=== PATIENT | female | born 1950 | race Hispanic/Latino ===

== ENCOUNTER → 2019-07-28 | Day surgery (SDC) | payer MEDICARE, OTHER ==
[2019-07-24 12:33] LABS: BASOPHILS % 0.3 % (0.0-1.0); EOSINOPHILS # (AUTO) 0.1 (0.0-0.4); EOSINOPHILS % 1.9 % (0.0-6.0); HEMATOCRIT 31.5 % (34.2-44.1); HEMOGLOBIN 10.1 g/dL (12.0-16.0); LYMPHOCYTES # (AUTO) 2.2 (1.0-3.2); LYMPHOCYTES % 37.5 % (18.0-39.1); MEAN CORPUSCULAR HEMOGLOBIN 30.8 pg (28-32); MEAN CORPUSCULAR HGB CONC 32.1 g/dL (31-35); MONOCYTES # (AUTO) 0.4 (0.2-0.8); MONOCYTES % 6.6 % (4.4-11.3); NEUTROPHILS # (AUTO) 3.1 (2.1-6.9); NEUTROPHILS % 53.5 % (38.7-80.0); PLATELET COUNT 167 x10e3/uL (140-360); RED BLOOD COUNT 3.28 x10e6/uL (3.6-5.1); RED CELL DISTRIBUTION WIDTH 14.5 % (11.7-14.4)
--- NOTE | 2019-07-24 12:35 | Diagnostic Imaging Report ---
EXAMINATION: CHEST 2 VIEWS INDICATION: Pre-operative COMPARISON: None FINDINGS: LINES/TUBES:None LUNGS:The lungs are well-inflated. No focal consolidation or pulmonary edema. PLEURA:No pleural effusion or pneumothorax. MEDIASTINUM:The cardiomediastinal silhouette appears normal in size and shape. Atherosclerotic calcifications of the thoracic aorta. BONES/SOFT TISSUES:No acute osseous injury. Multilevel degenerative changes of the visualized spine. ABDOMEN:No free air under the diaphragm. IMPRESSION: No focal pneumonia or pulmonary edema. Signed by: Dinora Pulido MD on 07/24/2019 12:32 PM
[2019-07-24 13:00] LABS: ANION GAP 13.1 mmol/L (8-16); CALCIUM 9.4 mg/dL (8.4-10.2); CREATININE, SERUM 0.96 mg/dL (0.57-1.11); POTASSIUM 4.1 mmol/L (3.5-5.1)
[~2019-07-28] MED LIST: ASPIR 8181 MG PO; BUPIVACAINE 0.25% 30ML SDV INJ ONE; BUPIVACAINE 0.5%/EPI 30 ML SDV INJ ONE; CALCIUM 600 +1 EAC2 PO; CEFAZOLIN SOD 1 GM/NS 50ML 50 ML IV ONE; DEXAMETHASONE SOD PHOS INJ 4 MG/ML VIAL ONE; EPINEPHRINE HCL 1:1000 1ML 1 MG/ML AMP ONE; FENTANYL CITRATE/PF 100MCG/2 ML INJ ONE; GLIMEPIRIDE2 MG PO; HYDROCHLOROTHIA25 MG PO; KETOROLAC TROMETHAMINE 30 MG/ML VIAL ONE; LIDOCAINE HCL 2% LOCAL INJ 5 ML SDV VIAL INJ ONE; LOSARTAN POTAS100 MG PO; METFORMIN HCL500 M1 PO; METOPROLOL SUCC50 MG PO; MIDAZOLAM HCL 2 MG/2 ML VIAL ONE; MUPIROCIN 2% OINT 22 GM TUBE ONE; NEXIUM20 MG PO; ONDANSETRON HCL INJ 2MG/ML 2ML 2 MG/ML VIAL ONE; PIOGLITAZONE HC45 MG PO; PROPOFOL IV EMULSION 10 MG/ML 20 ML VIAL ONE; SERTRALINE HCL50 MG PO; SEVOFLURANE INHAL SOLN 250 ML PEN BTL ONE; SIMVASTATIN20 MG PO; calcium PO
--- OUTSIDE RECORDS SUMMARY | 2019-07-28 05:55 | XMS REPORT | Continuity of Care Document ---
Author Author [facility] Organization [facility] Address Unknown Phone Unavailable Care Team Providers Care Truss Maker Name Role Phone MD Pinky, Nakia SAEED Unavailable Insurance Providers Payer name Policy type / Coverage type Policy ID Covered alliance party ID Policy [place] [employer] [place]PL [place] [employer] [place] [employer] [place] [employer] [place] [employer] [place] [employer] [place] [employer] [place] [employer] [place] [employer] [place] [employer] Encounters Encounter Performer Location Date Lab Report Nakia Vance MD [facility] Jun 01, 2015 Problems Problem Effective Dates Problem Status DIABETES MELLITUS, TYPE II, UNCONTROLLED Nov 04, 2014 Active HYPERTENSION Nov 04, 2014 Active HYPERLIPIDEMIA Nov 04, 2014 Active DEPRESSION/ANXIETY Nov 04, 2014 Active BODY MASS INDEX 32.0-32.9, ADULT Nov 04, 2014 Active PREVENTIVE HEALTH CARE Nov 04, 2014 Active SCREENING FOR COLON CANCER Nov 04, 2014 Active OTHER SCREENING MAMMOGRAM Nov 04, 2014 Active SCREENING FOR GLAUCOMA Nov 04, 2014 Active MENOPAUSE Nov 04, 2014 Active ROUTINE GYNECOLOGICAL EXAMINATION Nov 04, 2014 Active NEED PROPHYLACTIC VACCINATION&INOCULATION FLU Nov 04, 2014 Active ANEMIA, CHRONIC Dec 07, 2014 Active GASTRITIS March 08, 2015 Active HELICOBACTER PYLORI INFECTION March 08, 2015 Active Procedures Date Description Comments Nov 04, 2014 smoking status Never smoker Nov 04, 2014 diabetic foot check yes Dec 07, 2014 smoking status Never smoker Jan 07, 2015 mammogram Completed Feb 03, 2015 colonoscopy Complete March 08, 2015 smoking status Never smoker Medications Medication Instructions Start Date Status SIMVASTATIN 10 MG TABS take one tablet by mouth daily Nov 04, 2014 Active PIOGLITAZONE HCL 30 MG TABS take one tablet by mouth daily Nov 04, 2014 Active LOSARTAN POTASSIUM 50 MG TABS take one tablet by mouth daily Nov 04, 2014 Active TOPROL XL 200 MG [id number] take one tablet by mouth daily Nov 04, 2014 Active SERTRALINE HCL 25 MG TABS take one tablet by mouth daily Nov 04, 2014 Active HYDROCHLOROTHIAZIDE 25 MG TABS take one tablet by mouth daily Nov 04, 2014 Active OMEPRAZOLE 20 MG CPDR take one capsule by mouth daily Nov 04, 2014 Active ASPIRIN ADULT LOW STRENGTH 81 MG TBEC take one tablet by mouth daily Nov 04, 2014 Active FERROUS SULFATE 325 (65 FE) MG TABS Take one tablet by mouth two times a day Dec 07, 2014 Active PYLERA CAPS use as directed March 08, 2015 Active VITAMIN B-12 INJECTIONS use as directed once a month March 08, 2015 Active GLIPIZIDE 5 MG TABS Take one tablet by mouth two times a day Nov 04, 2014 Active METFORMIN HCL 500 MG TABS Take one tablet by mouth two times a day March 08, 2015 Active Immunizations Vaccine Date Status influenza immunization (Flu Vax) has been administered Nov 04, 2014 completed Vital Signs Date Description Test Result Nov 04, 2014 weight E&M - 3141-9 WEIGHT 194 lb Nov 04, 2014 height E&M - 8302-2 HEIGHT 65 in Nov 04, 2014 temperature E&M TEMPERATURE 99.3 deg f Nov 04, 2014 respiratory rate E&M - 9279-1 RESP RATE 16 /min Nov 04, 2014 pulse rate E&M - 8867-4 PULSE RATE 66 /min Nov 04, 2014 blood pressure, systolic - 8480-6 BP SYSTOLIC 121 mm Hg Nov 04, 2014 blood pressure, diastolic - 8462-4 BP DIASTOLIC 43 mm Hg Dec 07, 2014 height E&M - 8302-2 HEIGHT 65 in Dec 07, 2014 weight E&M - 3141-9 WEIGHT 189.25 lb Dec 07, 2014 temperature E&M TEMPERATURE 99.5 deg f Dec 07, 2014 respiratory rate E&M - 9279-1 RESP RATE 14 /min Dec 07, 2014 pulse rate E&M - 8867-4 PULSE RATE 60 /min Dec 07, 2014 blood pressure, systolic - 8480-6 BP SYSTOLIC 132 mm Hg Dec 07, 2014 blood pressure, diastolic - 8462-4 BP DIASTOLIC 61 mm Hg March 08, 2015 respiratory rate E&M - 9279-1 RESP RATE 16 /min March 08, 2015 temperature E&M TEMPERATURE 97.8 deg f March 08, 2015 weight E&M - 3141-9 WEIGHT 182.13 lb March 08, 2015 height E&M - 8302-2 HEIGHT 65 in March 08, 2015 blood pressure, systolic - 8480-6 BP SYSTOLIC 142 mm Hg March 08, 2015 blood pressure, diastolic - 8462-4 BP DIASTOLIC 63 mm Hg March 08, 2015 pulse rate E&M - 8867-4 PULSE RATE 66 /min March 08, 2015 blood pressure, systolic, second observation BP SYS #2 142 mm Hg March 08, 2015 blood pressure, diastolic, second observation BP FUNMI #2 80 mm Hg Results Date Description Test Name Value Reference Interpretation Status Nov 30, 2014 hemoglobin, blood HGB 9.3 g/dL 12.0-16.0 Low Nov 30, 2014 hematocrit, blood HCT 29.2 % 36.0-48.0 Low Nov 30, 2014 platelet count PLATELETS 154 K/CMM /mm3 133-450 May 31, 2015 hemoglobin, blood HGB 13.1 g/dL 12.0-16.0 May 31, 2015 hematocrit, blood HCT 40.2 % 36.0-48.0 May 31, 2015 platelet count PLATELETS 143 K/CMM /mm3 133-450 March 03, 2015 hemoglobin A1C, blood, as % of total hemoglobin HGBA1C 10.8 % <=5.6 High March 03, 2015 sodium, serum SODIUM 139 MEQ/L mmol/L 135-145 March 03, 2015 potassium, serum POTASSIUM 4.8 MEQ/L mmol/L 3.5-5.1 March 03, 2015 creatinine, serum CREATININE 0.9 mg/dL 0.5-1.4 March 03, 2015 urea nitrogen, blood BUN 13 mg/dL 7-March 03, 2015 urea nitrogen/creatinine ratio, serum BUN/CREAT 14 null 6-25 March 03, 2015 albumin, serum ALBUMIN 3.9 g/dL 3.5-5.0 March 03, 2015 calcium, serum CALCIUM 9.1 mg/dL 8.5-10.5 March 03, 2015 alanine aminotransferase (SGPT), serum SGPT (ALT) 42 U/L 0-65 March 03, 2015 aspartate aminotransferase (SGOT), serum SGOT (AST) 47 U/L 0-37 High March 03, 2015 alkaline phosphatase, serum ALK PHOS 130 U/L 39-136 Nov 30, 2014 hemoglobin A1C, blood, as % of total hemoglobin HGBA1C 7.5 % <=5.6 High Nov 30, 2014 thyroid stimulating hormone, serum TSH 2.330 uIU/mL 0.360-3.740 Nov 30, 2014 cholesterol, serum CHOLESTEROL 152 mg/dl <=199 Nov 30, 2014 triglyceride, serum, fasting TRIGLYCERIDE 106 mg/dl <=149 Nov 30, 2014 HDL cholesterol, serum HDL 57 mg/dl >=61 Low Nov 30, 2014 LDL cholesterol, serum LDL 74 mg/dl <=99 Nov 30, 2014 sodium, serum SODIUM 139 MEQ/L mmol/L 135-145 Nov 30, 2014 potassium, serum POTASSIUM 4.3 MEQ/L mmol/L 3.5-5.1 Nov 30, 2014 creatinine, serum CREATININE 0.8 mg/dL 0.5-1.4 Nov 30, 2014 urea nitrogen, blood BUN 14 mg/dL 7-22 Nov 30, 2014 urea nitrogen/creatinine ratio, serum BUN/CREAT 18 null 6-25 Nov 30, 2014 albumin, serum ALBUMIN 4.0 g/dL 3.5-5.0 Nov 30, 2014 calcium, serum CALCIUM 9.2 mg/dL 8.5-10.5 Nov 30, 2014 alanine aminotransferase (SGPT), serum SGPT (ALT) 24 U/L 0-65 Nov 30, 2014 aspartate aminotransferase (SGOT), serum SGOT (AST) 24 U/L 0-37 Nov 30, 2014 alkaline phosphatase, serum ALK PHOS 130 U/L 39-136 Nov 30, 2014 ferritin, serum FERRITIN 6 ng/mL 5-204 Nov 30, 2014 iron, serum IRON 30 ug/dL 30-160 Nov 30, 2014 iron binding capacity, total TIBC 342 ug/dL 228-428 Dec 02, 2014 occult blood, stool (E&M) HEMOCCULT Negative null Negative Dec 03, 2014 occult blood, stool (E&M) HEMOCCULT Negative null Negative Dec 04, 2014 occult blood, stool (E&M) HEMOCCULT Negative null Negative March 03, 2015 hemoglobin A1C, blood, as % of total hemoglobin HGBA1C 10.8 % <=5.6 High March 03, 2015 sodium, serum SODIUM 139 MEQ/L mmol/L 135-145 March 03, 2015 potassium, serum POTASSIUM 4.8 MEQ/L mmol/L 3.5-5.1 March 03, 2015 creatinine, serum CREATININE 0.9 mg/dL 0.5-1.4 March 03, 2015 urea nitrogen, blood BUN 13 mg/dL 7-22 March 03, 2015 urea nitrogen/creatinine ratio, serum BUN/CREAT 14 null 6-25 March 03, 2015 albumin, serum ALBUMIN 3.9 g/dL 3.5-5.0 March 03, 2015 calcium, serum CALCIUM 9.1 mg/dL 8.5-10.5 March 03, 2015 alanine aminotransferase (SGPT), serum SGPT (ALT) 42 U/L 0-65 March 03, 2015 aspartate aminotransferase (SGOT), serum SGOT (AST) 47 U/L 0-37 High March 03, 2015 alkaline phosphatase, serum ALK PHOS 130 U/L 39-136 May 31, 2015 hemoglobin A1C, blood, as % of total hemoglobin HGBA1C 7.8 % <=5.6 High May 31, 2015 cholesterol, serum CHOLESTEROL 194 mg/dl <=199 May 31, 2015 triglyceride, serum, fasting TRIGLYCERIDE 216 mg/dl <=149 High May 31, 2015 HDL cholesterol, serum HDL 54 mg/dl >=61 Low May 31, 2015 LDL cholesterol, serum LDL 97 mg/dl <=99 May 31, 2015 sodium, serum SODIUM 140 MEQ/L mmol/L 135-145 May 31, 2015 potassium, serum POTASSIUM 4.8 MEQ/L mmol/L 3.5-5.1 May 31, 2015 creatinine, serum CREATININE 0.9 mg/dL 0.5-1.4 May 31, 2015 urea nitrogen, blood BUN 23 mg/dL 7-22 High May 31, 2015 urea nitrogen/creatinine ratio, serum BUN/CREAT 26 null 6-25 High May 31, 2015 albumin, serum ALBUMIN 3.8 g/dL 3.5-5.0 May 31, 2015 calcium, serum CALCIUM 9.1 mg/dL 8.5-10.5 May 31, 2015 alanine aminotransferase (SGPT), serum SGPT (ALT) 44 U/L 0-65 May 31, 2015 aspartate aminotransferase (SGOT), serum SGOT (AST) 54 U/L 0-37 High May 31, 2015 alkaline phosphatase, serum ALK PHOS 122 U/L 39-136
--- OUTSIDE RECORDS SUMMARY | 2019-07-28 05:55 | XMS REPORT | Continuity of Care Document ---
Author Author [email or web address] Address Unknown Phone Unavailable Care Team Providers Care Director Food Safety Name Role Phone Logan Unavailable Unavailable Problems Problem Status Onset Date Classification Date Reported Comments Source GASTRITIS Active 03/08/2015 Condition 06/07/2015 [facility] HELICOBACTER PYLORI INFECTION Active 03/08/2015 Condition 06/07/2015 [facility] ANEMIA, CHRONIC Active 12/07/2014 Condition 06/07/2015 [facility] DIABETES MELLITUS, TYPE II, UNCONTROLLED Active 11/04/2014 Condition 06/07/2015 [facility] HYPERTENSION Active 11/04/2014 Condition 06/07/2015 [facility] HYPERLIPIDEMIA Active 11/04/2014 Condition 06/07/2015 [facility] DEPRESSION/ANXIETY Active 11/04/2014 Condition 06/07/2015 [facility] BODY MASS INDEX 32.0-32.9, ADULT Active 11/04/2014 Condition 06/07/2015 [facility] PREVENTIVE HEALTH CARE Active 11/04/2014 Condition 06/07/2015 [facility] SCREENING FOR COLON CANCER Active 11/04/2014 Condition 06/07/2015 [facility] OTHER SCREENING MAMMOGRAM Active 11/04/2014 Condition 06/07/2015 [facility] SCREENING FOR GLAUCOMA Active 11/04/2014 Condition 06/07/2015 [facility] MENOPAUSE Active 11/04/2014 Condition 06/07/2015 [facility] ROUTINE GYNECOLOGICAL EXAMINATION Active 11/04/2014 Condition 06/07/2015 [facility] NEED PROPHYLACTIC VACCINATION&INOCULATION FLU Active 11/04/2014 Condition 06/07/2015 [facility] Joint pain Active Diagnosis 07/23/2019 Rock Castillo ALEXANDRO positive Active Problem 07/23/2019 Rock Castillo Rotator cuff arthropathy Active Problem 07/23/2019 Rock Castillo Shoulder pain, left Active Diagnosis 07/23/2019 Rock Castillo Osteopenia after menopause Active Problem 07/23/2019 Rock Castillo Medications Medication Details Route Status Patient Instructions Ordering Provider Order Date Source PYLERA CAPS use as directed Active 03/08/2015 [facility] VITAMIN B-12 INJECTIONS use as directed once a month Active 03/08/2015 [facility] METFORMIN HCL 500 MG TABS Take one tablet by mouth two times a day Active 03/08/2015 [facility] METFORMIN HCL 500 MG TABS Take one tablet by mouth two times a day Active 03/08/2015 [facility] FERROUS SULFATE 325 (65 FE) MG TABS Take one tablet by mouth two times a day Active 12/07/2014 [facility] SIMVASTATIN 10 MG TABS take one tablet by mouth daily Active 11/04/2014 [facility] PIOGLITAZONE HCL 30 MG TABS take one tablet by mouth daily Active 11/04/2014 [facility] LOSARTAN POTASSIUM 50 MG TABS take one tablet by mouth daily Active 11/04/2014 [facility] TOPROL XL 200 MG [id number] take one tablet by mouth daily Active 11/04/2014 [facility] SERTRALINE HCL 25 MG TABS take one tablet by mouth daily Active 11/04/2014 [facility] HYDROCHLOROTHIAZIDE 25 MG TABS take one tablet by mouth daily Active 11/04/2014 [facility] OMEPRAZOLE 20 MG CPDR take one capsule by mouth daily Active 11/04/2014 [facility] METFORMIN HCL ER 500 MG [id number] take two tablets by mouth twice a day Active 11/04/2014 [facility] ASPIRIN ADULT LOW STRENGTH 81 MG TBEC take one tablet by mouth daily Active 11/04/2014 [facility] PIOGLITAZONE HCL 30 MG TABS take one tablet by mouth daily Active 11/04/2014 [facility] LOSARTAN POTASSIUM 50 MG TABS take one tablet by mouth daily Active 11/04/2014 [facility] TOPROL XL 200 MG [id number] take one tablet by mouth daily Active 11/04/2014 [facility] HYDROCHLOROTHIAZIDE 25 MG TABS take one tablet by mouth daily Active 11/04/2014 [facility] OMEPRAZOLE 20 MG CPDR take one capsule by mouth daily Active 11/04/2014 [facility] GLIPIZIDE 5 MG TABS Take one tablet by mouth two times a day Active 11/04/2014 [facility] PIOGLITAZONE HCL 30 MG TABS take one tablet by mouth daily Active 11/04/2014 [facility] OMEPRAZOLE 20 MG CPDR take one capsule by mouth daily Active 11/04/2014 [facility] GLIPIZIDE 5 MG TABS Take one tablet by mouth two times a day Active 11/04/2014 [facility] Metoprolol Succinate 1 tablet Orally Active 50 MG Orally Once a day Tim Rock Castillo Glimepiride 1 tablet with breakfast or the first main meal of the day Orally Active 2 MG Orally Once a day Timyolanda Castillo Calcium + D as directed Orally Active 500-1000-40 MG-UNT-MCG Orally Tim Rock Castillo Metformin HCl 1 tablet with a meal Orally Active 500 MG Orally Once a day Tim Rock Castillo Losartan Potassium 1 tablet Orally Active 100 MG Orally Once a day Tim Rock Castillo Sertraline HCl 1 tablet Orally Active 25 MG Orally Once a day Tim Rock Castillo Hydrochlorothiazide 1 tablet in the morning Orally Active 25 MG Orally Once a day Tim Rock Castillo Simvastatin 1 tablet in the evening Orally Active 10 MG Orally Once a day Tim Rock Castillo Pioglitazone HCl 1 tablet Orally Active 30 MG Orally Once a day Tim Rock Castillo Esomeprazole Magnesium 1 tablet Orally Active 20 MG Orally Once a day Tim Rock Castillo Allergies, Adverse Reactions, Alerts Substance Category Reaction Severity Reaction type Status Date Reported Comments Source N.K.D.A. Adverse Reaction Info Not Available Adverse Reaction 02/10/2019 Rock Castillo Immunizations Immunization Date Given Site Status Last Updated Comments Source influenza immunization (Flu Vax) has been administered 11/04/2014 completed [facility] Results Order Name Results Value Reference Range Date Interpretation Comments Source Chemistry HGBA1C 7.8 - 5.6 05/31/2015 [facility] Chemistry CHOLESTEROL 194 - 199 05/31/2015 [facility] Chemistry TRIGLYCERIDE 216 - 149 05/31/2015 [facility] Chemistry HDL 54 >=61 05/31/2015 [facility] Chemistry LDL 97 - 99 05/31/2015 [facility] Chemistry SODIUM 140 MEQ/L 135 - 145 05/31/2015 [facility] Chemistry POTASSIUM 4.8 MEQ/L 3.5 - 5.1 05/31/2015 [facility] Chemistry CREATININE 0.9 0.5 - 1.4 05/31/2015 [facility] Chemistry BUN 23 7 - 22 05/31/2015 [facility] Chemistry BUN/CREAT 26 6 - 25 05/31/2015 [facility] Chemistry ALBUMIN 3.8 3.5 - 5.0 05/31/2015 [facility] Chemistry CALCIUM 9.1 8.5 - 10.5 05/31/2015 [facility] Chemistry SGPT (ALT) 44 0 - 65 05/31/2015 [facility] Chemistry SGOT (AST) 54 0 - 37 05/31/2015 [facility] Chemistry ALK PHOS 122 39 - 136 05/31/2015 [facility] Hematology HGB 13.1 12.0 - 16.0 05/31/2015 [facility] Hematology HCT 40.2 36.0 - 48.0 05/31/2015 [facility] Hematology PLATELETS 143 K/CMM 133 - 450 05/31/2015 [facility] Chemistry HGBA1C 10.8 - 5.6 03/03/2015 [facility] Chemistry SODIUM 139 MEQ/L 135 - 145 03/03/2015 [facility] Chemistry POTASSIUM 4.8 MEQ/L 3.5 - 5.1 03/03/2015 [facility] Chemistry CREATININE 0.9 0.5 - 1.4 03/03/2015 [facility] Chemistry BUN 13 7 - 22 03/03/2015 [facility] Chemistry BUN/CREAT 14 6 - 25 03/03/2015 [facility] Chemistry ALBUMIN 3.9 3.5 - 5.0 03/03/2015 [facility] Chemistry CALCIUM 9.1 8.5 - 10.5 03/03/2015 [facility] Chemistry SGPT (ALT) 42 0 - 65 03/03/2015 [facility] Chemistry SGOT (AST) 47 0 - 37 03/03/2015 [facility] Chemistry ALK PHOS 130 39 - 136 03/03/2015 [facility] Chemistry HGBA1C 10.8 - 5.6 03/03/2015 [facility] Chemistry SODIUM 139 MEQ/L 135 - 145 03/03/2015 [facility] Chemistry POTASSIUM 4.8 MEQ/L 3.5 - 5.1 03/03/2015 [facility] Chemistry CREATININE 0.9 0.5 - 1.4 03/03/2015 [facility] Chemistry BUN 13 7 - 22 03/03/2015 [facility] Chemistry BUN/CREAT 14 6 - 25 03/03/2015 [facility] Chemistry ALBUMIN 3.9 3.5 - 5.0 03/03/2015 [facility] Chemistry CALCIUM 9.1 8.5 - 10.5 03/03/2015 [facility] Chemistry SGPT (ALT) 42 0 - 65 03/03/2015 [facility] Chemistry SGOT (AST) 47 0 - 37 03/03/2015 [facility] Chemistry ALK PHOS 130 39 - 136 03/03/2015 [facility] Chemistry HGBA1C 10.8 - 5.6 03/03/2015 [facility] Chemistry SODIUM 139 MEQ/L 135 - 145 03/03/2015 [facility] Chemistry POTASSIUM 4.8 MEQ/L 3.5 - 5.1 03/03/2015 [facility] Chemistry HGBA1C 10.8 - 5.6 03/03/2015 [facility] Chemistry SODIUM 139 MEQ/L 135 - 145 03/03/2015 [facility] Chemistry POTASSIUM 4.8 MEQ/L 3.5 - 5.1 03/03/2015 [facility] Chemistry HEMOCCULT Negative 12/04/2014 [facility] Chemistry HEMOCCULT Negative 12/04/2014 [facility] Chemistry HEMOCCULT Negative 12/04/2014 [facility] Chemistry HEMOCCULT Negative 12/03/2014 [facility] Chemistry HEMOCCULT Negative 12/03/2014 [facility] Chemistry HEMOCCULT Negative 12/03/2014 [facility] Chemistry HEMOCCULT Negative 12/02/2014 [facility] Chemistry HEMOCCULT Negative 12/02/2014 [facility] Chemistry HEMOCCULT Negative 12/02/2014 [facility] Chemistry HGBA1C 7.5 - 5.6 11/30/2014 [facility] Chemistry TSH 2.330 0.360 - 3.740 11/30/2014 [facility] Chemistry CHOLESTEROL 152 - 199 11/30/2014 [facility] Chemistry TRIGLYCERIDE 106 - 149 11/30/2014 [facility] Chemistry HDL 57 >=61 11/30/2014 [facility] Chemistry LDL 74 - 99 11/30/2014 [facility] Chemistry SODIUM 139 MEQ/L 135 - 145 11/30/2014 [facility] Chemistry POTASSIUM 4.3 MEQ/L 3.5 - 5.1 11/30/2014 [facility] Chemistry CREATININE 0.8 0.5 - 1.4 11/30/2014 [facility] Chemistry BUN 14 7 - 22 11/30/2014 [facility] Chemistry BUN/CREAT 18 6 - 25 11/30/2014 [facility] Chemistry ALBUMIN 4.0 3.5 - 5.0 11/30/2014 [facility] Chemistry CALCIUM 9.2 8.5 - 10.5 11/30/2014 [facility] Chemistry SGPT (ALT) 24 0 - 65 11/30/2014 [facility] Chemistry SGOT (AST) 24 0 - 37 11/30/2014 [facility] Chemistry ALK PHOS 130 39 - 136 11/30/2014 [facility] Chemistry FERRITIN 6 5 - 204 11/30/2014 [facility] Chemistry IRON 30 30 - 160 11/30/2014 [facility] Chemistry TIBC 342 228 - 428 11/30/2014 [facility] Chemistry HGBA1C 7.5 - 5.6 11/30/2014 [facility] Chemistry TSH 2.330 0.360 - 3.740 11/30/2014 [facility] Chemistry CHOLESTEROL 152 - 199 11/30/2014 [facility] Chemistry HGBA1C 7.5 - 5.6 11/30/2014 [facility] Chemistry TSH 2.330 0.360 - 3.740 11/30/2014 [facility] Chemistry CHOLESTEROL 152 - 199 11/30/2014 [facility] Chemistry TRIGLYCERIDE 106 - 149 11/30/2014 [facility] Chemistry HDL 57 >=61 11/30/2014 [facility] Chemistry LDL 74 - 99 11/30/2014 [facility] Chemistry SODIUM 139 MEQ/L 135 - 145 11/30/2014 [facility] Chemistry POTASSIUM 4.3 MEQ/L 3.5 - 5.1 11/30/2014 [facility] Chemistry CREATININE 0.8 0.5 - 1.4 11/30/2014 [facility] Chemistry BUN 14 7 - 22 11/30/2014 [facility] Chemistry BUN/CREAT 18 6 - 25 11/30/2014 [facility] Hematology HGB 9.3 12.0 - 16.0 11/30/2014 [facility] Hematology HCT 29.2 36.0 - 48.0 11/30/2014 [facility] Hematology PLATELETS 154 K/CMM 133 - 450 11/30/2014 [facility] Pathology Reports No Data Provided for This Section Diagnostic Reports No Data Provided for This Section Consultation Notes No Data Provided for This Section Discharge Summaries No Data Provided for This Section History and Physicals No Data Provided for This Section Vital Signs Vital Sign Value Date Comments Source Weight 181.5 04/02/2019 Rock Castillo Height 63.5 04/02/2019 Rock Castillo Temperature Oral (F) 97.7 F 04/02/2019 Rock Castillo Heart Rate 64 04/02/2019 Rock Castillo Diastolic (mm Hg) 64 04/02/2019 Rock Castillo Systolic (mm Hg) 128 04/02/2019 Rock Castillo Weight 181.6 02/18/2019 Rock Castillo Height 63.5 02/18/2019 Rock Castillo Temperature Oral (F) 97.6 F 02/18/2019 Rock Castillo Heart Rate 76 02/18/2019 Rock Castillo Diastolic (mm Hg) 60 02/18/2019 Rock Castillo Systolic (mm Hg) 122 02/18/2019 Rock Castillo Weight 182.6 02/10/2019 Rock Castillo Height 63.5 02/10/2019 Rock Castillo Temperature Oral (F) 98.4 F 02/10/2019 Rock Castillo Heart Rate 80 02/10/2019 Rock Castillo Diastolic (mm Hg) 80 02/10/2019 Rock Castillo Systolic (mm Hg) 178 02/10/2019 Orck Castillo Respitory Rate 16 03/08/2015 [facility] Temperature Oral (F) 97.8 F 03/08/2015 [facility] Weight 182.13 03/08/2015 [facility] Height 65 03/08/2015 [facility] Systolic (mm Hg) 142 03/08/2015 [facility] Diastolic (mm Hg) 63 03/08/2015 [facility] Heart Rate 66 03/08/2015 [facility] Height 65 12/07/2014 [facility] Weight 189.25 12/07/2014 [facility] Temperature Oral (F) 99.5 F 12/07/2014 [facility] Respitory Rate 14 12/07/2014 [facility] Heart Rate 60 12/07/2014 [facility] Systolic (mm Hg) 132 12/07/2014 [facility] Diastolic (mm Hg) 61 12/07/2014 [facility] Weight 194 11/04/2014 [facility] Height 65 11/04/2014 [facility] Temperature Oral (F) 99.3 F 11/04/2014 [facility] Respitory Rate 16 11/04/2014 [facility] Heart Rate 66 11/04/2014 [facility] Systolic (mm Hg) 121 11/04/2014 [facility] Diastolic (mm Hg) 43 11/04/2014 [facility] Encounters Location Location Details Encounter Type Encounter Number Reason For Visit Attending Provider ADM Date DC Date Status Source [facility] Office Visit [id number] Nakia Vance MD 11/04/2014 11/04/2014 [facility] Lab Report [id number] Nakia Vance MD 11/30/2014 11/30/2014 [facility] Lab Report [id number] Nakia Vance MD 11/30/2014 11/30/2014 [facility] Lab Report [id number] Nakia Vance MD 12/04/2014 12/04/2014 [facility] Office Visit [id number] Nakia Vance MD 12/07/2014 12/07/2014 [facility] Lab Report [id number] Nakia Vance MD 03/03/2015 03/03/2015 [facility] Office Visit [id number] Nakia Vance MD 03/08/2015 03/08/2015 [facility] Lab Report [id number] Nakia Vance MD 05/31/2015 05/31/2015 [facility] Lab Report [id number] Nakia Vance MD 06/01/2015 06/01/2015 [facility] Office Visit [id number] Nakia Vance MD 06/07/2015 06/07/2015 [facility] Procedures Procedure Code Date Perfomer Comments Source colonoscopy 95582 02/03/2015 Complete [facility] mammogram 62413 01/07/2015 Completed [facility] diabetic foot check [id number] 11/04/2014 yes [facility] Assessment and Plan No Data Provided for This Section Plan of Care No Data Provided for This Section Social History No Data Provided for This Section Family History No Data Provided for This Section Advance Directives No Data Provided for This Section Functional Status No Data Provided for This Section
--- OUTSIDE RECORDS SUMMARY | 2019-07-28 05:56 | XMS REPORT ---
Author Author Kendall Dumont Organization [employer] Address Unknown Phone Unavailable Care Team Providers Care Supervisor Pit And Auxiliaries Name Role Phone TimKendall CP Unavailable Allergies, Adverse Reactions, Alerts Substance Reaction Event Type N.K.D.A. Info Not Available Non Drug Allergy Problems Problem Type Condition Code Onset Dates Condition Status Assessment Shoulder pain, left M25.512 Active Problem ALEXANDRO positive R76.8 Active Problem Rotator cuff arthropathy M12.819 Active Problem Shoulder pain, left M25.512 Active Assessment Joint pain M25.50 Active Problem Joint pain M25.50 Active Problem Osteopenia after menopause M81.0 Active Medications Medication Code System Code Instructions Start Date End Date Status Dosage Hydrochlorothiazide [facility] 01523607225 25 MG Orally Once a day Active 1 tablet in the morning Glimepiride [facility] 35575825182 2 MG Orally Once a day Active 1 tablet with breakfast or the first main meal of the day Metoprolol Succinate [facility] [address]-87 50 MG Orally Once a day Active 1 tablet Calcium + D [facility] 53165906645 500-1000-40 MG-UNT-MCG Orally Active as directed Losartan Potassium [facility] 08064989485 100 MG Orally Once a day Active 1 tablet Sertraline HCl [facility] 94718622901 25 MG Orally Once a day Active 1 tablet Esomeprazole Magnesium [facility] [address]-93 20 MG Orally Once a day Active 1 tablet Pioglitazone HCl [facility] 11070277455 30 MG Orally Once a day Active 1 tablet Metformin HCl [facility] 94037722017 500 MG Orally Once a day Active 1 tablet with a meal Simvastatin ND 26621553430 10 MG Orally Once a day Active 1 tablet in the evening Vital Signs Date/Time: February 10, 2019 BMI 31.84 Index Weight 182.6 lbs Height 63.5 in Temperature 98.4 F Cardiac Monitoring Heart Rate 80 /min Blood Pressure Diastolic 80 mm Hg Blood Pressure Systolic 178 mm Hg Results No Known Results Summary Purpose [employer] Submission
--- OUTSIDE RECORDS SUMMARY | 2019-07-28 05:56 | XMS REPORT ---
Author Author Kendall Dumont [facility] [employer] Address Unknown Phone Unavailable Care Team Providers Care Flatlock Sewing Machine Operator Name Role Phone Kendall Dumont Unavailable Allergies, Adverse Reactions, Alerts Substance Reaction Event Type N.K.D.A. Info Not Available Non Drug Allergy Problems Problem Type Condition Code Onset Dates Condition Status Assessment ALEXANDRO positive R76.8 Active Assessment Rotator cuff arthropathy M12.819 Active Assessment Joint pain M25.50 Active Problem ALEXANDRO positive R76.8 Active Problem Rotator cuff arthropathy M12.819 Active Problem Shoulder pain, left M25.512 Active Assessment Shoulder pain, left M25.512 Active Problem Joint pain M25.50 Active Problem Osteopenia after menopause M81.0 Active Medications Medication Code System Code Instructions Start Date End Date Status Dosage Metoprolol Succinate [facility] [address]-86 50 MG Orally Once a day Active 1 tablet Esomeprazole Magnesium [facility] [address]-55 20 MG Orally Once a day Active 1 tablet Simvastatin ND 33571231757 10 MG Orally Once a day Active 1 tablet in the evening Sertraline HCl [facility] 25029759824 25 MG Orally Once a day Active 1 tablet Pioglitazone HCl [facility] 02133161449 30 MG Orally Once a day Active 1 tablet Metformin HCl [facility] 53895478258 500 MG Orally Once a day Active 1 tablet with a meal Hydrochlorothiazide [facility] 69611914030 25 MG Orally Once a day Active 1 tablet in the morning Calcium + D [facility] 80938182120 500-1000-40 MG-UNT-MCG Orally Active as directed Losartan Potassium ND 79237239433 100 MG Orally Once a day Active 1 tablet Glimepiride ND 27808799518 2 MG Orally Once a day Active 1 tablet with breakfast or the first main meal of the day Vital Signs Date/Time: February 18, 2019 BMI 31.66 Index Weight 181.6 lbs Height 63.5 in Temperature 97.6 F Cardiac Monitoring Heart Rate 76 /min Blood Pressure Diastolic 60 mm Hg Blood Pressure Systolic 122 mm Hg Results No Known Results Summary Purpose [employer] Submission
--- OUTSIDE RECORDS SUMMARY | 2019-07-28 05:56 | XMS REPORT | Continuity of Care Document ---
Author Author [facility] Organization [facility] Address Unknown Phone Unavailable Care Team Providers Care Airline Pilot Name Role Phone MD Pinky, Nakia SAEED [...] Location Date Lab Report Nakia Vance MD [facility] May 31, 2015 Problems Problem Effective Dates Problem Status [...] 04, 2014 Active TOPROL XL 200 MG [id number] take one tablet by mouth daily Nov [...]
--- OUTSIDE RECORDS SUMMARY | 2019-07-28 05:56 | XMS REPORT | Continuity of Care Document ---
Author Author [facility] Address Unknown Phone Unavailable Care Team Providers Care Retail Center Receptionist Name Role Phone MD Pinky, Nakia SAEED Unavailable Insurance Providers Payer name Policy type / Coverage type Policy ID Covered green party ID Policy [place]IC[place]: [employer] Encounters Encounter Performer Location Date Office Visit Nakia Vance MD [facility] Nov 04, 2014 Problems Problem Effective Dates Problem Status DIABETES [...] PROPHYLACTIC VACCINATION&INOCULATION FLU Nov 04, 2014 Active Procedures Date Description Comments Nov 04, 2014 smoking status Never smoker Nov 04, 2014 diabetic foot check yes Medications Medication Instructions Start Date Status SIMVASTATIN 10 MG TABS take one tablet by mouth daily Nov 04, 2014 Active PIOGLITAZONE HCL 30 MG TABS take one tablet by mouth daily Nov 04, 2014 Active LOSARTAN POTASSIUM 50 MG TABS take one tablet by mouth daily Nov 04, 2014 Active TOPROL XL 200 MG [id number] take one tablet by mouth daily Nov 04, 2014 Active SERTRALINE HCL 25 MG TABS take one tablet by mouth daily Nov 04, 2014 Active HYDROCHLOROTHIAZIDE 25 MG TABS take one tablet by mouth daily Nov 04, 2014 Active OMEPRAZOLE 20 MG CPDR take one capsule by mouth daily Nov 04, 2014 Active METFORMIN HCL ER 500 MG [id number] take two tablets by mouth twice a day Nov 04, 2014 Active ASPIRIN ADULT LOW STRENGTH 81 MG TBEC take one tablet by mouth daily Nov 04, 2014 Active Immunizations Vaccine Date Status influenza immunization [...]
--- OUTSIDE RECORDS SUMMARY | 2019-07-28 05:56 | XMS REPORT ---
Author [facility] Address Unknown Phone Unavailable Care Team Providers Care Home Performance Consultant Name Role Phone TAD VALENTINE Unavailable Unavailable Problems This patient has no known problems. Allergies, Adverse Reactions, Alerts This patient has no known allergies or adverse reactions. Medications This patient has no known medications. Encounters Start Date/Time End Date/Time Encounter Type Admission Type Attending [facility] Care Facility Care Department Encounter ID 2019-07-22 19:59:00 2019-07-22 19:59:00 Emergency E [id number] 2019-07-22 09:56:00 2019-07-22 09:56:00 Outpatient [id number] Results Test Description Test Time Test Comments Text Results Atomic Results Result Comments CHEST 2 VIEWS 2019-07-24 12:31:00 [place] [address] Patient Name: ENRIQUE SANDOVAL MR #: [id number] : 1950 Age/Sex: 68/F Req #: [id number] Adm Physician: Ordered by: TAD VALENTINE MD Report #: [id number] Location: OR Room/Bed: Procedure: [id number] DX/CHEST 2 VIEWS Exam Date: 07/24/19 Exam Time: 1200 REPORT STATUS: Signed EXAMINATION: CHEST 2 VIEWS INDICATION: Pre-operative COMPARISON: None FINDINGS: LINES/TUBES:None LUNGS:The lungs are well-inflated. No focal consolidation or pulmonary edema. PLEURA:No pleural effusion or pneumothorax. MEDIASTINUM:The cardiomediastinal silhouette appears normal in size and shape. Atherosclerotic calcifications of the thoracic aorta. BONES/SOFT TISSUES:No acute osseous injury. Multilevel degenerative changes of the visualized spine. ABDOMEN:No free air under the diaphragm. IMPRESSION: No focal pneumonia or pulmonary edema. Signed by: Jordan Pulido MD on 07/24/2019 12:32 PM Dictated By: JORDAN PULIDO MD [id number] Transcribed By: ROXY on 07/24/19 1232 COPY TO: TAD VALENTINE MD
--- OUTSIDE RECORDS SUMMARY | 2019-07-28 05:56 | XMS REPORT | Continuity of Care Document ---
Author Author [facility] Organization [facility] Address Unknown Phone Unavailable Care Team Providers Care Software Developer Name Role Phone MD Pinky, Nakia SAEED Unavailable Insurance Providers Payer name Policy type / Coverage type Policy ID Covered democrat ID Policy [place] [email or web address] [place]MED[place]: [place] SOLUT[employer] MED[place]: [place] SOLUTIONS [place]: [place]OV[place] [email or web address] [place] SOLUTIONS Encounters Encounter Performer Location Date Lab Report Nakia Vance MD [facility] Dec 04, 2014 Problems Problem Effective Dates Problem [...] 04, 2014 Active TOPROL XL 200 MG [id number] take one tablet by mouth daily Nov 04, 2014 Active SERTRALINE HCL 25 MG TABS take one tablet by mouth daily Nov 04, 2014 Active HYDROCHLOROTHIAZIDE 25 MG TABS take one tablet by mouth daily Nov 04, 2014 Active OMEPRAZOLE 20 MG CPDR take one capsule by mouth daily Nov 04, 2014 Active METFORMIN HCL ER 500 MG [id number] take two tablets by mouth twice a [...] - 8462-4 BP DIASTOLIC 43 mm Hg Results Date Description Test Name Value Reference Interpretation Status Nov 30, 2014 hemoglobin, blood HGB 9.3 g/dL 12.0-16.0 Low Nov 30, 2014 hematocrit, blood HCT 29.2 % 36.0-48.0 Low Nov 30, 2014 platelet count PLATELETS 154 K/CMM /mm3 133-450 Nov 30, 2014 hemoglobin A1C, blood, as [...]
--- OUTSIDE RECORDS SUMMARY | 2019-07-28 05:56 | XMS REPORT | Continuity of Care Document ---
Author Author [facility] Organization [facility] Address Unknown Phone Unavailable Care Team Providers Care Marine Engine Machinist Name Role Phone MD Pinky, Nakia SAEED Unavailable Insurance Providers Payer name Policy type / Coverage type Policy ID Covered libertarian ID Policy [place] [employer] [place]PL [place] [employer] [place] [employer] [place]: [employer] Encounters Encounter Performer Location Date Lab Report Nakia Vance MD [facility] Nov 30, 2014 Problems Problem Effective Dates Problem Status [...] 04, 2014 Active TOPROL XL 200 MG [id number] take one tablet by mouth daily Nov 04, 2014 Active SERTRALINE HCL 25 MG TABS take one tablet by mouth daily Nov 04, 2014 Active HYDROCHLOROTHIAZIDE 25 MG TABS take one tablet by mouth daily Nov 04, 2014 Active OMEPRAZOLE 20 MG CPDR take one capsule by mouth daily Nov 04, 2014 Active METFORMIN HCL ER 500 MG [id number] take two tablets by mouth twice a [...]
--- OUTSIDE RECORDS SUMMARY | 2019-07-28 05:56 | XMS REPORT | Continuity of Care Document ---
Author Author [facility] Organization [facility] Address Unknown Phone Unavailable Care Team Providers Care Time Lock Expert Name Role Phone MD Pinky, Nakia SAEED Unavailable Insurance Providers Payer name Policy type / Coverage type Policy ID Covered republican ID Policy [place] [employer] [place]MED[place]PL [place]: [place] [employer]UT[employer] MED[place]: [place] SOL[employer] MED[place]: [place] SOL[employer] [place]: [place] SOLUTIONS [place]: [place] SOLUTIONS MEDICARE B-[place]: NOVITAS SOLUTIONS MEDICARE B-[place]: NOV[place]AS SOLUT[employer] MED[place]: [place] SOLUT[employer] MED[place]: [place] SOL[employer] MED[place]: [place] SOL[employer] MED[place]ARE [place]: NOVITAS SOLUTIONS Encounters Encounter Performer Location Date Office Visit Nakia Vance MD [facility] Jun 07, 2015 Problems Problem Effective Dates Problem Status [...] 04, 2014 Active TOPROL XL 200 MG [id number] take one tablet by mouth daily Nov [...] 2015 urea nitrogen, blood BUN 23 mg/dL 7- High May 31, 2015 urea nitrogen/creatinine ratio, [...]
--- OUTSIDE RECORDS SUMMARY | 2019-07-28 05:56 | XMS REPORT | Continuity of Care Document ---
Author Author [facility] Organization [facility] Address Unknown Phone Unavailable Care Team Providers Care Hooker Operator Name Role Phone MD Pinky, Nakia SAEED Unavailable Insurance Providers Payer name Policy type / Coverage type Policy ID Covered alliance party ID Policy [place] [employer] [place]PL [place] SOLUTIONS MEDICARE B-[place]: NOV[place] SOLUT[employer] MED[place]: [place] SOL[employer] MED[place]: [place] [employer] MED[place]: [place] [employer] [place]: [place]OV[place]AS SOL[employer] Encounters Encounter Performer Location Date Office Visit Nakia Vance MD [facility] Dec 07, 2014 Problems Problem Effective Dates Problem Status [...] Active ANEMIA, CHRONIC Dec 07, 2014 Active Procedures Date Description Comments Nov 04, 2014 smoking status Never smoker Nov 04, 2014 diabetic foot check yes Dec 07, 2014 smoking status Never smoker Medications Medication Instructions Start Date Status SIMVASTATIN 10 MG TABS take one tablet by mouth daily Nov 04, 2014 Active PIOGLITAZONE HCL 30 MG TABS take one tablet by mouth daily Nov 04, 2014 Active LOSARTAN POTASSIUM 50 MG TABS take one tablet by mouth daily Nov 04, 2014 Active TOPROL XL 200 MG [id number] take one tablet by mouth daily Nov 04, 2014 Active SERTRALINE HCL 25 MG TABS take one tablet by mouth daily Nov 04, 2014 Active HYDROCHLOROTHIAZIDE 25 MG TABS take one tablet by mouth daily Nov 04, 2014 Active OMEPRAZOLE 20 MG CPDR take one capsule by mouth daily Nov 04, 2014 Active METFORMIN HCL ER 500 MG [id number] take two tablets by mouth twice a day Nov 04, 2014 Active ASPIRIN ADULT LOW STRENGTH 81 MG TBEC take one tablet by mouth daily Nov 04, 2014 Active FERROUS SULFATE 325 (65 FE) MG TABS Take one tablet by mouth two times a day Dec 07, 2014 Active Immunizations Vaccine Date Status influenza [...] - 8462-4 BP DIASTOLIC 61 mm Hg Results Date Description Test Name [...]
--- OUTSIDE RECORDS SUMMARY | 2019-07-28 05:56 | XMS REPORT | Continuity of Care Document ---
Author Author [facility] Organization [facility] Address Unknown Phone Unavailable Care Team Providers Care Body Designer Name Role Phone MD Pinky, Nakia SAEED Unavailable Insurance Providers Payer name Policy type / Coverage type Policy ID Covered constitution party ID Policy [place] [employer] [place]PL [place]: [place]OV[place]AS SOLUT[employer] MEDICARE B-[place]: NOVITAS SOLUTIONS MEDICARE B-[place]: NOVITAS SOLUTIONS MEDICARE [place]: N[employer]AS [employer] MEDICARE [place]: NOV[employer]AS SOLUTIONS MEDICARE B-[place]: N[employer]AS SOLUT[employer] MEDICARE [place]: NOVITAS SOLUTIONS Encounters Encounter Performer Location Date Lab Report Nakia Vance MD [facility] March 03, 2015 Problems Problem Effective Dates Problem Status [...] mammogram Completed Feb 03, 2015 colonoscopy Complete Medications Medication Instructions Start Date Status SIMVASTATIN 10 MG TABS take one tablet by mouth daily Nov 04, 2014 Active PIOGLITAZONE HCL 30 MG TABS take one tablet by mouth daily Nov 04, 2014 Active LOSARTAN POTASSIUM 50 MG TABS take one tablet by mouth daily Nov 04, 2014 Active TOPROL XL 200 MG [id number] take one tablet by mouth daily Nov 04, 2014 Active SERTRALINE HCL 25 MG TABS take one tablet by mouth daily Nov 04, 2014 Active HYDROCHLOROTHIAZIDE 25 MG TABS take one tablet by mouth daily Nov 04, 2014 Active OMEPRAZOLE 20 MG CPDR take one capsule by mouth daily Nov 04, 2014 Active METFORMIN HCL ER 500 MG [id number] take two tablets by mouth twice a [...] platelet count PLATELETS 154 K/CMM /mm3 133-450 March 03, 2015 hemoglobin [...] 2014 urea nitrogen, blood BUN 14 mg/dL 7-Nov 30, 2014 urea nitrogen/creatinine ratio, serum BUN/CREAT [...] urea nitrogen/creatinine ratio, serum BUN/CREAT 14 null 6-March 03, 2015 albumin, serum ALBUMIN 3.9 g/dL 3.5-5.0 March 03, 2015 calcium, serum CALCIUM 9.1 mg/dL 8.5-10.5 March 03, 2015 alanine aminotransferase (SGPT), serum SGPT (ALT) 42 U/L 0-65 March 03, 2015 aspartate aminotransferase (SGOT), serum SGOT (AST) 47 U/L 0-37 High March 03, 2015 alkaline phosphatase, serum ALK PHOS 130 U/L 39-136
--- OUTSIDE RECORDS SUMMARY | 2019-07-28 05:56 | XMS REPORT ---
Author Derrell Balderrama Organization [employer] Address Unknown Phone Unavailable Care Team Providers Care Harness Puller Name Role Phone Derrell Castillo CP Unavailable Allergies No Known Allergies Problems Problem Type Condition Code Onset Dates Condition Status Problem Joint pain M25.50 Active Medications No Known Medications Results No Known Results Summary Purpose [employer] Submission
--- OUTSIDE RECORDS SUMMARY | 2019-07-28 05:56 | XMS REPORT | Continuity of Care Document ---
Author Author [facility] Organization [facility] Address Unknown Phone Unavailable Care Team Providers Care High Man Name Role Phone MD Pinky, Nakia SAEED [...] Location Date Office Visit Nakia Vance MD [facility] March 08, 2015 Problems Problem Effective Dates Problem Status [...] 04, 2014 Active TOPROL XL 200 MG [id number] take one tablet by mouth daily Nov [...] urea nitrogen/creatinine ratio, serum BUN/CREAT 18 null 6-Nov 30, 2014 albumin, serum ALBUMIN 4.0 g/dL [...] 2015 urea nitrogen, blood BUN 13 mg/dL -March 03, 2015 urea nitrogen/creatinine ratio, serum BUN/CREAT 14 null -March 03, 2015 albumin, serum ALBUMIN 3.9 g/dL 3.5-5.0 March 03, 2015 calcium, serum CALCIUM 9.1 mg/dL 8.5-10.5 March 03, 2015 alanine aminotransferase (SGPT), serum SGPT (ALT) 42 U/L 0-65 March 03, 2015 aspartate aminotransferase (SGOT), serum SGOT (AST) 47 U/L 0-37 High March 03, 2015 alkaline phosphatase, serum ALK PHOS 130 U/L 39-136
--- OUTSIDE RECORDS SUMMARY | 2019-07-28 05:56 | XMS REPORT | Continuity of Care Document ---
Author Author [facility] Organization [facility] Address Unknown Phone Unavailable Care Team Providers Care Hospice Massage Therapist Name Role Phone MD Pinky, Nakia SAEED Unavailable Insurance Providers Payer name Policy type / Coverage type Policy ID Covered democrat ID Policy Perales [place] [employer] [place]PL [place]: [place] SOLUTIONS MED[place]: [place] [employer] MEDIC[place]: [place] [employer] Encounters Encounter Performer Location Date Lab Report Nakia Vance MD [facility] Nov 30, 2014 Problems Problem Effective Dates [...] 04, 2014 Active TOPROL XL 200 MG [id number] take one tablet by mouth daily Nov 04, 2014 Active SERTRALINE HCL 25 MG TABS take one tablet by mouth daily Nov 04, 2014 Active HYDROCHLOROTHIAZIDE 25 MG TABS take one tablet by mouth daily Nov 04, 2014 Active OMEPRAZOLE 20 MG CPDR take one capsule by mouth daily Nov 04, 2014 Active METFORMIN HCL ER 500 MG [id number] take two tablets by mouth twice a [...]
--- OUTSIDE RECORDS SUMMARY | 2019-07-28 05:56 | XMS REPORT ---
Author Author Derrell Castillo Organization [employer] Address Unknown Phone Unavailable Care Team Providers Care Escape Wheel Tooth Cutter Name Role Phone Derrell Castillo CP Unavailable Allergies No Known Allergies Problems Problem Type Condition Code Onset Dates Condition Status Problem ALEXANDRO positive R76.8 Active Problem Rotator cuff arthropathy M12.819 Active Problem Shoulder pain, left M25.512 Active Problem Joint pain M25.50 Active Medications No Known Medications Results No Known Results Summary Purpose [employer] Submission
--- OUTSIDE RECORDS SUMMARY | 2019-07-28 05:56 | XMS REPORT ---
Author Author Kendall Dumont Organization [employer] Address Unknown Phone Unavailable Care Team Providers Care Veterinary Surgery Technician Name Role Phone TimKendall CP Unavailable Allergies, Adverse Reactions, Alerts Substance Reaction Event Type N.K.D.A. Info Not Available Non Drug Allergy Problems Problem Type Condition Code Onset Dates Condition Status Problem ALEXANDRO positive R76.8 Active Problem Rotator cuff arthropathy M12.819 Active Problem Shoulder pain, left M25.512 Active Assessment ALEXANDRO positive R76.8 Active Assessment Shoulder pain, left M25.512 Active Problem Joint pain M25.50 Active Medications Medication Code System Code Instructions Start Date End Date Status Dosage Metoprolol Succinate [facility] [address]-92 50 MG Orally Once a day Active 1 tablet Glimepiride [facility] 17641415301 2 MG Orally Once a day Active 1 tablet with breakfast or the first main meal of the day Calcium + D [facility] 14675448537 500-1000-40 MG-UNT-MCG Orally Active as directed Metformin HCl [facility] 27110222255 500 MG Orally Once a day Active 1 tablet with a meal Losartan Potassium [facility] 94642964729 100 MG Orally Once a day Active 1 tablet Sertraline HCl [facility] 88984110546 25 MG Orally Once a day Active 1 tablet Hydrochlorothiazide [facility] 16166089738 25 MG Orally Once a day Active 1 tablet in the morning Simvastatin [facility] 91344212912 10 MG Orally Once a day Active 1 tablet in the evening Pioglitazone HCl [facility] 56234791363 30 MG Orally Once a day Active 1 tablet Esomeprazole Magnesium [facility] [address]-03 20 MG Orally Once a day Active 1 tablet Vital Signs Date/Time: April 02, 2019 BMI 31.64 Index Weight 181.5 lbs Height 63.5 in Temperature 97.7 F Cardiac Monitoring Heart Rate 64 /min Blood Pressure Diastolic 64 mm Hg Blood Pressure Systolic 128 mm Hg Results No Known Results Summary Purpose [employer] Submission
--- OUTSIDE RECORDS SUMMARY | 2019-07-28 05:56 | XMS REPORT | Continuity of Care Document ---
Author Author [facility] Address Unknown Phone Unavailable Care Team Providers Care Advertising Designer Name Role Phone MD Pinky, Nakia SAEED Unavailable Insurance Providers Payer name Policy type / Coverage type Policy ID Covered green party ID Policy [place]erales [place] [employer] Encounters Encounter Performer Location Date Office Visit Nakia Vance MD [facility] Nov 04, 2014 Problems [...] 04, 2014 Active TOPROL XL 200 MG [id number] take one tablet by mouth daily Nov 04, 2014 Active SERTRALINE HCL 25 MG TABS take one tablet by mouth daily Nov 04, 2014 Active HYDROCHLOROTHIAZIDE 25 MG TABS take one tablet by mouth daily Nov 04, 2014 Active OMEPRAZOLE 20 MG CPDR take one capsule by mouth daily Nov 04, 2014 Active METFORMIN HCL ER 500 MG [id number] take two tablets by mouth twice a [...]
[2019-07-28 09:47] VITALS: BP 169/65
--- NOTE | 2019-07-28 14:32 | Operative Report ---
DATE OF PROCEDURE: 07/28/2019 SURGEON: Gilberto Rubio MD PRODUCTION INTERNSHIP: Jimmy Amador, certified PA. PREOPERATIVE DIAGNOSIS: Right knee patella fracture. POSTOPERATIVE DIAGNOSIS: Right knee patella fracture. PROCEDURE: Open reduction and internal fixation of right patella. INDICATIONS: The patient is a 68-year-old lady, who sustained an inferior pole patella fracture. The inferior aspect of the patella is comminuted. This accounts for approximately 15% of the patellar body. We have discussed the findings and options. I plan on an open reduction with internal fixation using FiberWire stitches were open into the patellar tendon. The risks and benefits and the recovery were explained. All of her questions were answered. She stated she understood and wishes to proceed. PROCEDURE IN DETAIL: The patient was brought to the operating room and placed under general anesthetic. Her right lower extremity was prepped and draped in a sterile manner. A preoperative time-out was performed. The extremity was exsanguinated and a proximal tourniquet was inflated to 300 mmHg. An anterior incision was made over the right knee. A hemarthrosis was evacuated. The fracture lines were identified. A #2 FiberWire was passed from the fracture site into the patellar tendon. This was woven in a Krackow-type weave through the patellar tendon. A drill hole was placed into the central portion of the inferior pole of the patella, where there was some decent quality bone. A Quintana suture passer was used to pass the #2 FiberWire through that. A similar stitch was placed in the lateral aspect of the patellar tendon and fracture site. Drill holes were placed through the superior body of the patella. A Quintana suture passer was used to pass the FiberWire stitches to the superior pole of the patella. The knee was held in extension while the FiberWire stitches were secured over the superior pole of the patella. The knee was put through slight flexion and extension. There was no gapping at the fracture site. The medial and lateral retinaculum were repaired with #1 Ethibond in a Winter-type of stitch. The wound was irrigated and closed. An intraoperative x-ray confirmed nice apposition of the inferior pole of the patella to the superior pole. The skin was closed with subcuticular Vicryl and winter. A sterile bandage and a knee immobilizer were applied. There was no blood loss and all needle and sponge counts were correct. Gilberto Rubio MD DR/DANILO /[id number]
== END | disposition home or self-care (01) ==
LOC: OR 05:48
PROVIDERS: ATTEND Specialist
DX: S82.041A Displaced comminuted fracture of right patella, initial encounter for closed fracture (principal); E11.9 Type 2 diabetes mellitus without complications; I10 Essential (primary) hypertension; E78.5 Hyperlipidemia, unspecified; K76.0 Fatty (change of) liver, not elsewhere classified; K28.9 Gastrojejunal ulcer, unspecified as acute or chronic, without hemorrhage or perforation; K58.9 Irritable bowel syndrome, unspecified; D64.9 Anemia, unspecified; W18.39XA Other fall on same level, initial encounter; Y92.830 Public park as the place of occurrence of the external cause; Z01.810 Encounter for preprocedural cardiovascular examination; Z01.812 Encounter for preprocedural laboratory examination; Z01.818 Encounter for other preprocedural examination; Z79.82 Long term (current) use of aspirin; Z79.84 Long term (current) use of oral hypoglycemic drugs
CPT/HCPCS: 27524; 36415 ×2; 71046; 76000; 80048; 82948; 85025; 93005; J0171; J0690; J1100; J1885; J2001; J2250; J2405; J2704; J3010

== ENCOUNTER → 2020-10-26 | Day surgery (SDC) | payer MEDICARE ==
[2020-10-21 11:30] LABS: BASOPHILS % 0.3 % (0.0-1.0); EOSINOPHILS # (AUTO) 0.1 (0.0-0.4); EOSINOPHILS % 1.4 % (0.0-6.0); HEMATOCRIT 35.8 % (34.2-44.1); HEMOGLOBIN 11.3 g/dL (12.0-16.0); LYMPHOCYTES # (AUTO) 1.6 (1.0-3.2); LYMPHOCYTES % 27.2 % (18.0-39.1); MEAN CORPUSCULAR HEMOGLOBIN 31.7 pg (28-32); MEAN CORPUSCULAR HGB CONC 31.6 g/dL (31-35); MEAN CORPUSCULAR VOLUME 100.3 fL (81-99); MONOCYTES # (AUTO) 0.3 (0.2-0.8); MONOCYTES % 4.7 % (4.4-11.3); NEUTROPHILS # (AUTO) 3.9 (2.1-6.9); NEUTROPHILS % 66.2 % (38.7-80.0); PLATELET COUNT 149 x10e3/uL (140-360); RED BLOOD COUNT 3.57 x10e6/uL (3.6-5.1); RED CELL DISTRIBUTION WIDTH 13.2 % (11.7-14.4)
[2020-10-21 11:47] LABS: ANION GAP 13.9 mmol/L (8-16); BLOOD UREA NITROGEN 21 mg/dL (7-26); BUN/CREATININE RATIO 25 (6-25); CALCIUM 9.6 mg/dL (8.4-10.2); CARBON DIOXIDE 31 mmol/L (22-29); CHLORIDE 99 mmol/L (98-107); CREATININE, SERUM 0.85 mg/dL (0.57-1.11); EST GLOMERULAR FILTRATION RATE > 60 ML/MIN (60-); GLUCOSE 199 mg/dL (74-118); POTASSIUM 4.9 mmol/L (3.5-5.1); SODIUM 139 mmol/L (136-145)
[~2020-10-26] MED LIST changes: +ACETAMINOPHEN/CODEINE 300MG - 30MG TAB ONE; -BUPIVACAINE 0.25% 30ML SDV INJ ONE; -EPINEPHRINE HCL 1:1000 1ML 1 MG/ML AMP ONE; -FENTANYL CITRATE/PF 100MCG/2 ML INJ ONE; +HYDRALAZINE HCL 20 MG/ML VIAL ONE; +HYDROMORPHONE 1MG/1ML INJ ONE; +IBUPROFEN 800MG/ 200ML 200 ML IV ONE; -KETOROLAC TROMETHAMINE 30 MG/ML VIAL ONE; +LABETALOL HCL 5 MG/ML 20ML VIAL ONE; -MIDAZOLAM HCL 2 MG/2 ML VIAL ONE
[2020-10-26 09:57] VITALS: BP 185/75
== END | disposition home or self-care (01) ==
LOC: OR 07:03
PROVIDERS: ATTEND Specialist
DX: S82.032A Displaced transverse fracture of left patella, initial encounter for closed fracture (principal); M19.90 Unspecified osteoarthritis, unspecified site; E11.9 Type 2 diabetes mellitus without complications; I11.0 Hypertensive heart disease with heart failure; I50.9 Heart failure, unspecified; E78.5 Hyperlipidemia, unspecified; K76.0 Fatty (change of) liver, not elsewhere classified; W01.0XXA Fall on same level from slipping, tripping and stumbling without subsequent striking against object, initial encounter; Y92.89 Other specified places as the place of occurrence of the external cause; Z01.810 Encounter for preprocedural cardiovascular examination; Z01.812 Encounter for preprocedural laboratory examination; Z01.818 Encounter for other preprocedural examination; Z20.828 Contact with and (suspected) exposure to other viral communicable diseases; Z79.82 Long term (current) use of aspirin; Z79.84 Long term (current) use of oral hypoglycemic drugs; Z68.31 Body mass index [BMI] 31.0-31.9, adult
CPT/HCPCS: 27524; 36415 ×2; 71046; 76000; 80048; 82948; 85025; 93005; J0690; J1170; J3590; U0002; J0360; J1100; J2001; J2405